=== PATIENT | female | born 1945 | race Caucasian/White ===

== ENCOUNTER → 2018-10-02 | Outpatient (CLI) | payer MEDICARE, OTHER ==
[~2018-10-02] MED LIST: ACYCLOVIR 400400 MG PO; ASPIR 8181 M1 PO; CIPRO500 MG PO; DEXILANT60 MG PO; DIOVAN HCT; FIORINAL 50-321 EACH PO; FLAGYL500 MG PO; GLUCOSAMINE HC500 MG PO; HYDROCHLOROTH12.5 M1 PO; HYDROCODON-ACE1 EAC7; HYDROCODON-ACE1 EAC8 PO; KRILL OIL 1,001 EAC1 PO; MULTI VITAMIN1 EACH PO; NEURONTIN 300300 M1 PO; NEXIUM40 MG; ZOFRAN ODT4 MG PO
== END ==
LOC: M.LAB 04:35
DX: Z01.812 Encounter for preprocedural laboratory examination (principal)

== ENCOUNTER → 2019-05-01 | Outpatient (CLI) | payer MEDICARE, OTHER | LOC: M.ULTRA 09:00 | DX: M47.814 Spondylosis without myelopathy or radiculopathy, thoracic region (principal); M25.78 Osteophyte, vertebrae; K80.80 Other cholelithiasis without obstruction; R39.89 Other symptoms and signs involving the genitourinary system; R82.90 Unspecified abnormal findings in urine; I10 Essential (primary) hypertension; R07.89 Other chest pain ==

== ENCOUNTER → 2019-05-16 | Outpatient (CLI) | payer MEDICARE, OTHER ==
[2019-05-16 08:53] LABS: HEMOGLOBIN 14.5 gm/dL (12.0-15.0); MCH 31.8 pg (26.0-34.0); MCHC 33.8 g/dL (28.0-37.0); MCV 94.2 fL (80.0-100.0); MPV 8.6 fl. (7.2-11.1); RBC 4.56 mil/uL (4.20-5.00); RDW-CV 12.8 % (10.5-14.5); WBC 5.4 thou/uL (4.0-11.0)
[2019-05-16 09:11] LABS: CALCIUM 9.9 mg/dL (8.5-10.1); CREATININE 0.8 mg/dL (0.6-1.3); POTASSIUM 4.1 mmol/L (3.5-5.1); TOTAL BILIRUBIN 0.5 mg/dL (<0.1-1.0); TOTAL PROTEIN 7.7 g/dL (6.4-8.2)
[2019-05-17 02:06] LABS: CA 125 7.3 U/mL (0.0-38.1)
[2019-05-17 22:10] LABS: CA 27.29-BREAST CARCINOMA AG 29.3 U/mL (0.0-38.6)
== END ==
LOC: M.LAB 05-13 14:12
PROVIDERS: Surgery
DX: K44.9 Diaphragmatic hernia without obstruction or gangrene (principal); M47.894 Other spondylosis, thoracic region; K80.20 Calculus of gallbladder without cholecystitis without obstruction; R79.89 Other specified abnormal findings of blood chemistry; E87.6 Hypokalemia; I70.0 Atherosclerosis of aorta; R63.4 Abnormal weight loss; I10 Essential (primary) hypertension; R10.12 Left upper quadrant pain; K21.9 Gastro-esophageal reflux disease without esophagitis; Z79.899 Other long term (current) drug therapy; Z88.5 Allergy status to narcotic agent; Z78.0 Asymptomatic menopausal state

== ENCOUNTER 2020-01-13 02:03 | Observation (INO) | payer OTHER ==
[~2020-01-13] VITALS: Ht 154.9 cm; Wt 76.2 kg
[2020-01-13 02:16] VITALS: BP 159/63
[2020-01-13] MEDS ORDERED: PAXIL 20 MG TAB20 MG PO (02:22)
[2020-01-13 07:35] VITALS: BP 141/58
[2020-01-13 08:00] LABS: URINE BILIRUBIN NEGATIVE (Negative); URINE BLOOD NEGATIVE (Negative); URINE CLARITY CLEAR; URINE COLOR YELLOW; URINE GLUCOSE-RANDOM NEGATIVE (Negative); URINE KETONES NEGATIVE (Negative); URINE LEUKOCYTES-REFLEX 1+ (Negative); URINE NITRITE-REFLEX NEGATIVE (Negative); URINE PROTEIN NEGATIVE (Negative); URINE SPECIFIC GRAVITY 1.015 (1.005-1.030); URINE UROBILINOGEN 0.2 E.U./dl (0.2-1.0)
[2020-01-13 08:13] LABS: SQUAMOUS 4-10 Moderate /LPF (0-3)
[2020-01-13 08:14] LABS: BACTERIA-REFLEX 1-9 Few /HPF (None Seen); CASTS None Seen /LPF (None Seen); CRYSTALS None Seen /LPF (None Seen); MUCUS 4-6 Moderate strn/LPF (None Seen); URINE RBC 0-2 Rare /HPF (0-2); URINE WBC-REFLEX 6-15 Few /HPF (0-5)
[2020-01-13 10:07] LABS: ABSOLUTE LYMPHOCYTES 0.8 thou/uL (0.8-5.3); ABSOLUTE MONOCYTES 0.5 thou/uL (0.0-1.2); ABSOLUTE NEUTROPHILS 6.8 thou/uL (1.6-8.1); BASOPHILS 0.4 %; EOSINOPHILS 0.1 %; HEMATOCRIT 40.3 % (37.0-47.0); HEMOGLOBIN 13.6 gm/dL (12.0-15.0); LYMPHOCYTES 9.3 %; MCH 31.4 pg (26.0-34.0); MCHC 33.7 g/dL (28.0-37.0); MCV 93.2 fL (80.0-100.0); MONOCYTES 6.2 %; MPV 9.6 fl. (7.2-11.1); NUCLEATED RBCS 0 /100WBC; PLATELET COUNT* 205 thou/uL (150-400); RBC 4.33 mil/uL (4.20-5.00); RDW-CV 12.5 % (10.5-14.5); WBC 8.1 thou/uL (4.0-11.0)
[2020-01-13 10:19] LABS: CREATININE 0.9 mg/dL (0.6-1.3); POTASSIUM 4.1 mmol/L (3.5-5.1)
[2020-01-13 10:26] LABS: APTT 24.4 Seconds (25.0-31.3); PROTIME 9.9 Seconds (9.20-11.50)
--- NOTE | 2020-01-13 13:16 | NUR ---
PT ADMITTED FROM ER WITH R FX HUMOROUS HEAD. PRN PAIN MEDICATION GIVEN PER PT REQUEST. IVF INFUSING. PT ORIENTED TO ROOM, CALL LIGHT, AND BED CONTROLS. PT VERBALIZED UNDERSTAING.
--- NOTE | 2020-01-13 15:16 | NUR ---
cm completed initial assessment to discuss d/c planning. pt lives at home w/spouse. spouse was present at bedside. pt is active, p/t employeed as business intelligence analyst. pt is independent w/adls. "I do all the cleaning. He [spouse] cooks." pt states she lives in a handy cap accessible apt, and has shower grab bars. pt has no other DME. pt has no hx w/snf/hh. cm to cont to follow to assist as needed.
[2020-01-13 16:00] VITALS: BP 129/51
[2020-01-13 21:00] VITALS: BP 128/65
[2020-01-14] VITALS: BP 121/49
[2020-01-14 04:00] VITALS: BP 117/73
--- NOTE | 2020-01-14 06:34 | NUR ---
PATIENT SLEPT WELL DURING THIS SHIFT. PT ASSISTED TO BSC TO VOID. PT WITH LT ARM IMMOBILIZER. PT ON O2 @ 1 LITER PLUS CAPNO. PT SALINE LOCKED. PT REQUESTED PAIN MEDICATION AND GIVEN FENTANYL 50MCG X3. FREQUENTLY USED ITEMS AND CALL LIGHT WITHIN REACH. SIDERAILS UPX2. WILL CONTINUE TO MONITOR.
[2020-01-14 07:40] VITALS: BP 146/65
--- NOTE | 2020-01-14 12:30 | CON ---
[address] [address] CONSULTATION Name: ADDISON DUNBAR Room: [address] Fay#: [id number] Admission: 01/13/20 Attend Phys: Alise Diggs Discharge: Date of : 41 Report #: [id number] THIS REPORT FOR: //name// cc: Zuhair Guthrie MD, David L. MD ~ THIS REPORT FOR: //name// CC: Zuhair Liu DATE OF SERVICE: 01/13/2020 CHIEF COMPLAINT: Shoulder pain. HISTORY OF PRESENT ILLNESS: The patient is a 74-year-old female with history of osteoarthritis as well as previous injuries to her left wrist who fell and fractured her left proximal humerus, was seen in the ER with pain 10/10, sharp and stabbing, radiating just down into the arm, was worse with movement. The patient states it is better currently in an immobilizer; however, pain was out of control, was needing IV medication, and was admitted for evaluation and oxygen supplementation. Past medical problems, atrophic vaginitis, colitis, GI bleed, injury to left hand, intractable pain, minor rib injury and UTI. ALLERGIES: CIPRO, MORPHINE, PROPOXYPHENE. PAST MEDICAL AND SURGICAL HISTORY: Acid reflux, high blood pressure, hysterectomy, tumor removal, hemorrhoidectomy, duct surgery, appendectomy, ovarian cyst. FAMILY HISTORY: Noncontributory. SOCIAL HISTORY: The patient denies any tobacco, alcohol, illicit drug use. MEDICATIONS: Aspirin, hydrochlorothiazide, Krill oil, and multivitamin. REVIEW OF SYSTEMS: A 12-system review of systems was reviewed and negative except pertinent positives in the HPI. PHYSICAL EXAMINATION: GENERAL: The patient is alert, oriented, 74-year-old female. HEENT: Head: Normocephalic, atraumatic. Eyes: Pupils equal, round, reactive to light and accommodation. Nose: Clear without ulcerations. Mouth: Mucous membranes moist and pink. NECK: Supple, no JVD, no bruit. CARDIOVASCULAR: Regular rate and rhythm. S1, S2 heart sounds present. LUNGS: Clear to auscultation bilaterally. [place] [address] CONSULTATION Name: ADDISON DUNBAR [address] [id number] Admission: 01/13/20 Attend Phys: Alise Diggs Discharge: Date of : 41 Report #: [id number] ABDOMEN: Soft, positive bowel sounds. No HSM. EXTREMITIES: No cyanosis, clubbing or edema. Does have pain in left shoulder with immobilizer. Can move left hand fingers, which are warm to touch. SKIN: Normal color and turgor. PSYCHIATRIC: The patient has appropriate mood and affect. NEUROLOGIC: Cranial nerves are intact as tested. Alert and conversational. Does have intact sensation throughout the left extremity. VITAL SIGNS: Temperature 36.4, pulse 63, respirations 12, blood pressure 141/58, pulse ox 98. X-RAY EVALUATIONS: Right elbow x-ray 3-view, no definite fractures, no displacement or fat pad sign suggestive of effusion. X-rays of the shoulder on left does show a surgical neck fracture of the proximal humerus with slight anterior medial position of the shaft in relation to the head. No dislocation is seen. ASSESSMENT: 1. Acute left humerus fracture with minimal displacement. 2. Hypoxia. 3. Intractable pain. 4. Gastroesophageal reflux disease. 5. Osteoarthritis. 6. Major depressive disorder. 7. Hypertension. PLAN: At this time, the patient was admitted for pain control. We would continue this to get this under control. I have discussed with her nonoperative and operative treatment of the left shoulder. At this time, we will proceed with nonoperative treatment due to her respiratory issues and not wanting to undergo surgery at this time. Continue immobilizer. No lifting or pushing or pulling with that arm and nonweightbearing with that extremity. I have discussed followup in 5 days for repeat evaluation and x-ray to evaluate the possibility of surgery as needed. Orthopaedics, stable for discharge and will follow up in the clinic for repeat evaluation, x-rays and further discussion of surgical intervention should this be needed. All questions were answered. The patient has understanding with care. <ELECTRONICALLY SIGNED> By: Dayne Acevedo II, DO 01/14/20 1230 2130 0008Dayne Acevedo II, DO /nt
--- NOTE | 2020-01-14 17:07 | NUR ---
PATIENT UP TO BSC WITH ASSISTANCE; LEFT ARM REMAINS IN IMMOBILIZER. ICE NEEDED. IV SL. PRN FENTANYL AND TRAMADOL GIVEN WITH GOOD RELIEF NOTED. PATIENT ON RA AT THIS TIME, PATIENT DOES DESAT TO 88% AT TIMES WHEN GETTING OUT OF BED OR IN PAIN. PATIENT CURRENTLY SLEEPING AT THIS TIME AND 02 SAT 95%. PT/OT ORDERED.
[2020-01-14 21:25] VITALS: BP 104/70
[2020-01-15 08:22] LABS: HEMATOCRIT 38.5 % (37.0-47.0); HEMOGLOBIN 12.9 gm/dL (12.0-15.0); MCH 31.4 pg (26.0-34.0); MCHC 33.5 g/dL (28.0-37.0); MCV 93.7 fL (80.0-100.0); MPV 9.6 fl. (7.2-11.1); RBC 4.11 mil/uL (4.20-5.00); RDW-CV 12.9 % (10.5-14.5); WBC 5.6 thou/uL (4.0-11.0)
[2020-01-15 08:24] VITALS: BP 134/59
[2020-01-15 08:51] LABS: CALCIUM 8.6 mg/dL (8.5-10.1); CREATININE 0.8 mg/dL (0.6-1.3); POTASSIUM 3.6 mmol/L (3.5-5.1)
[2020-01-15] MEDS ORDERED: TRAMADOL 50 MG50 MG PO (11:19)
[2020-01-15] MEDS ORDERED: HYDROCODON-ACE1 EAC7 PO (11:19)
[2020-01-15 15:01] VITALS: BP 134/59
--- NOTE | 2020-01-15 15:55 | NUR ---
PT DISCHARGED HOME. IV ACCESS REMOVED. IMOBILIZER TO LUE IN PLACE. COPY OF DISCHARGE PAPERWORK TO PT WITH EXPLAINATION. PT VERBALIZED UNDERSTANDING. PT ESCORTED PER WHEELCHAIR TO MAIN ENTRANCE WHERE SHE WAS ASSISTED INTO THEIR PRIVATE VEHICHLE WITH HER .
[2020-01-19] MEDS ORDERED: VITAMIN D325 MC1 PO (11:14)
[2020-01-22] MEDS ORDERED: OMEPRAZOLE 20 M20 M1 PO (13:17)
[2020-01-22] MEDS ORDERED: PERCOCET 5-3251 EACH PO (16:21)
== END 2020-01-15 15:45 | disposition home or self-care (01) ==
LOC: M.ERS 02:03 → M.TBA-ER 03:36 → M.3W 08:19
PROVIDERS: Emergency Medicine; Internal Medicine; ADMIT Internal Medicine; ATTEND Internal Medicine
DX: Z03.818 Encounter for observation for suspected exposure to other biological agents ruled out (principal); M80.822A Other osteoporosis with current pathological fracture, left humerus, initial encounter for fracture; J96.01 Acute respiratory failure with hypoxia; K21.9 Gastro-esophageal reflux disease without esophagitis; M19.011 Primary osteoarthritis, right shoulder; F32.9 Major depressive disorder, single episode, unspecified; I10 Essential (primary) hypertension

== ENCOUNTER → 2020-01-22 | Day surgery (SDC) | payer OTHER ==
[~2020-01-22] MED LIST changes: +HYDROCODON-ACE1 EAC7 PO; +OMEPRAZOLE 20 M20 M1 PO; +PAXIL 20 MG TAB20 MG PO; +PERCOCET 5-3251 EACH PO; +TRAMADOL 50 MG50 MG PO; +VITAMIN D325 MC1 PO
--- NOTE | 2020-01-22 14:17 | EKG ---
[place] [address] ELECTROCARDIOGRAM REPORT Name: AMBERNEILADDISON CUNNINGHAM Room: [facility]#: [id number] Admission: Attend Phys: Dayne Acevedo, Discharge: Date of : 41 Date of Service: 01/22/20 1323 Report #: [id number] THIS REPORT FOR: //name// [facility] Test Date: 2020-01-22 Test Time: 13:23:39 Pat Name: ADDISON DUNBAR Department: Room: Gender: Transition Coach: : 1945 Requested By: Dayne Acevedo Order Number: [id number] Arley MD: Oscar Worthington Measurements Intervals [place] Rate: 71 P: 26 WA: 131 QRS: -5 QRSD: 92 T: 19 QT: 391 QTc: 425 Interpretive Statements Sinus rhythm Inferior scar cannot be excluded Compared to ECG 04/20/2017 12:21:12 No significant changes Electronically Signed On 01-22-2020 14:17:02 CDT by Oscar Worthington [email or web address] <ELECTRONICALLY SIGNED> By: Oscar Worthington MD, [facility] 01/22/20 1417 1323 1323 Oscar Worthington MD, [facility] /EPI
--- NOTE | 2020-01-27 10:19 | OP ---
[address] [address] OPERATIVE REPORT Name: ADDISON DUNBAR Room: [facility]#: [id number] Admission: 01/22/20 Attend Phys: Dayne Acevedo II Discharge: Date of : 41 Report #: [id number] THIS REPORT FOR: //name// cc: Zuhair Guthrie MD, David L. MD ~ THIS REPORT FOR: //name// CC: Zuhair Acevedo DATE OF SERVICE: 01/22/2020 PREOPERATIVE DIAGNOSIS: Left proximal humerus fracture with displacement. POSTOPERATIVE DIAGNOSIS: Left proximal humerus fracture with displacement. PROCEDURE: Open reduction and internal fixation of left proximal humerus fracture. SURGEON: Dayne Acevedo II, DO CERAMICS TEST ENGINEER: EMMA Milton. ANESTHESIA: General endotracheal with preoperative interscalene block. ESTIMATED BLOOD LOSS: 30 mL. ANTIBIOTICS: Ancef preoperatively. DRAINS: None. COMPLICATIONS: None. CONDITION: The patient is stable to recovery room. IMPLANTS: Leighann proximal humerus plate with appropriate locking and nonlocking screws. DESCRIPTION OF PROCEDURE: The patient was taken to the operative suite and placed supine on the operating table, given appropriate anesthesia. The patient's left shoulder was sterilely prepped and draped in modified beach chair position. All bony prominences well padded. Surgery began by an anterior deltopectoral incision over the left proximal humerus. The skin and subcutaneous tissues, and the deltoid was retracted gently to allow evaluation of the fracture. The fracture hematoma was evacuated and the posterior displaced humeral head was reduced in near anatomic fashion, visualized with [facility] [address] [place] [address] OPERATIVE REPORT Name: ADDISON DUNBAR Room: [facility]#: [id number] Admission: 01/22/20 Attend Phys: Dayne Acevedo II Discharge: Date of : 41 Report #: [id number] C-arm in both internal and externally rotated views to the appropriate position. Proximal radius plate was then selected, placed over the bone and held with reduction forceps. This was visualized to be in excellent position and it was secured with appropriate locking and nonlocking screws throughout the proximal aspect as well as distal shaft. Final images were taken with the plate in place in both the internally and externally rotated views showing excellent anatomic position. Final irrigation was then performed of the wound. The deltopectoral incision portion was closed with 1-Vicryl in running fashion. Skin was closed with 2-0 Vicryl and running Monocryl stitch. Dermabond and sterile dressing was applied as well as a sling. The patient was transported to recovery room in stable condition. Counts were correct throughout the procedure. <ELECTRONICALLY SIGNED> By: Dayne Acevedo II, DO 01/27/20 1019 17 2033Dayne Acevedo II, DO /nt
== END | disposition home or self-care (01) ==
LOC: M.SUR 07:00
PROVIDERS: ATTEND Orthopaedic Surgery
DX: S42.202A Unspecified fracture of upper end of left humerus, initial encounter for closed fracture (principal); I10 Essential (primary) hypertension; K21.9 Gastro-esophageal reflux disease without esophagitis; Z79.899 Other long term (current) drug therapy; Z87.440 Personal history of urinary (tract) infections; Z98.890 Other specified postprocedural states; X58.XXXA Exposure to other specified factors, initial encounter; Y93.89 Activity, other specified; Y92.89 Other specified places as the place of occurrence of the external cause; Y99.8 Other external cause status

== ENCOUNTER → 2020-11-15 | Outpatient (CLI) | payer OTHER | LOC: M.CT 14:19 | PROVIDERS: ATTEND Internal Medicine | DX: S09.90XA Unspecified injury of head, initial encounter (principal); M19.012 Primary osteoarthritis, left shoulder; M25.78 Osteophyte, vertebrae; M47.814 Spondylosis without myelopathy or radiculopathy, thoracic region; G44.89 Other headache syndrome; Z98.890 Other specified postprocedural states; X58.XXXA Exposure to other specified factors, initial encounter; Y93.89 Activity, other specified; Y92.89 Other specified places as the place of occurrence of the external cause; Y99.8 Other external cause status ==

== ENCOUNTER → 2020-12-30 | Outpatient (CLI) | payer OTHER | LOC: M.CT 10:46 | PROVIDERS: ATTEND Internal Medicine | DX: N21.0 Calculus in bladder (principal); R10.30 Lower abdominal pain, unspecified; R10.2 Pelvic and perineal pain; K62.89 Other specified diseases of anus and rectum ==